=== PATIENT | male | born 1985 | race Two or more races ===

== ENCOUNTER 2020-06-08 11:58 | Emergency (ER) | payer MEDICAID ==
[~2020-06-08] VITALS: Ht 188 cm; Wt 77.1 kg
--- NOTE | 2020-06-08 12:01 | NUR ---
called for triage not in the waiting room
[2020-06-08 12:11] VITALS: BP 119/72
== END 2020-06-08 12:58 | disposition home or self-care (01) ==
LOC: ER 12:03
DX: N48.22 Cellulitis of corpus cavernosum and penis (principal); I10 Essential (primary) hypertension; F41.9 Anxiety disorder, unspecified; F32.9 Major depressive disorder, single episode, unspecified